=== PATIENT | male | born 1975 | race Hispanic/Latino ===

== ENCOUNTER 2018-05-24 20:08 | Emergency (ER) | payer OTHER ==
[~2018-05-24] VITALS: Ht 175.3 cm; Wt 90.7 kg
== END 2018-05-24 20:49 | disposition home or self-care (01) ==
LOC: FSED 20:08
DX: S01.01XA Laceration without foreign body of scalp, initial encounter (principal); S00.83XA Contusion of other part of head, initial encounter; W22.09XA Striking against other stationary object, initial encounter; Y92.008 Other place in unspecified non-institutional (private) residence as the place of occurrence of the external cause
CPT/HCPCS: 99283